=== PATIENT | male | born 2000 | race African-American/Black ===

== ENCOUNTER 2024-01-12 01:25 | Emergency (ER) | payer MEDICAID, SELFPAY ==
--- NOTE | ~2024-01-12 | XR_ITS ---
XR wrist LT min 3V DATE: 01/12/2024 01:55 INDICATION: Left wrist pain TECHNIQUE: 4 views COMPARISON: None FINDINGS: There is a minimally displaced mildly comminuted intra-articular fracture of the distal rad ius. No other fracture or dislocation is detected. IMPRESSION: Intra-articular distal radial fracture Reviewed, dictated and finalized at location A.
[2024-01-12 01:28] VITALS: BP 146/88; PULSE 86; RESP 20; TEMP 37.1; O2SAT 100
--- NOTE | 2024-01-12 02:12 | ED.GENADULT ---
HPI - General Adult General Chief complaint: Extremity Injury, Upper Stated complaint: Bilateral wrist injury Time Seen by Provider: 01/12/24 01:38 History of Present Illness HPI narrative: This is a 23-year-old male presenting wrist injury. He is playing basketball when he had a fall on an outstretched hand. He now has swelling and pain in his left wrist. No other injuries Related Data Allergies Allergy/AdvReac Type Severity Reaction Status Date / Time No Known Allergies Allergy Verified 01/12/24 01:32 Exam Narrative: APPEARANCE: No apparent distress. Head: atraumatic. EYES: EOMI, NOSE: Atraumatic NECK: Trachea midline RESPIRATORY: No increased rate of breathing CARDIOVASCULAR: RRR, ABDOMINAL: Non-distended MUSCULOSKELETAl: focal exam left wrist revealed swelling. virtual customer assistant strength intact, cap refill less than 2 seconds. No anatomic snuffbox tenderness. NEURO: Alert. Moving 4/4 extremities SKIN:: Warm, dry. Normal color PSYCHIATRIC: Normal affect Course Vital Signs Vital signs: Vital Signs Temperature 98.8 F 01/12/24 01:28 Pulse Rate 86 01/12/24 01:28 Respiratory Rate 20 01/12/24 01:28 Blood Pressure 146/88 H 01/12/24 01:28 Pulse Oximetry 100 01/12/24 01:28 Oxygen Delivery Room Air 01/12/24 01:28 Temperature 98.8 F 01/12/24 01:28 Pulse Rate 86 01/12/24 01:28 Respiratory Rate 20 01/12/24 01:28 Blood Pressure 146/88 H 01/12/24 01:28 Pulse Oximetry 100 01/12/24 01:28 Oxygen Delivery Room Air 01/12/24 01:28 Medical Decision Making [facility] Narrative Medical decision making narrative: -Course: 23-year-old male presenting left wrist pain. X-ray showed a distal radius fracture. patient placed in a splint. Neurovascularly intact before and after splint. given Orthopedic follow-up. -DDX includes but is not limited to: Wrist sprain, wrist fracture -Independent interpretation of studies: Radius fracture on Xray -Interventions: Motrin, Tylenol -Shared decision making / Disposition: Discharged -RX Motrin/Tylenol Vital Signs Vital Signs: Vital Signs Temperature 98.8 F 01/12/24 01:28 Pulse Rate 86 01/12/24 01:28 Respiratory Rate 20 01/12/24 01:28 Blood Pressure 146/88 H 01/12/24 01:28 Pulse Oximetry 100 01/12/24 01:28 Oxygen Delivery Room Air 01/12/24 01:28 Temperature 98.8 F 01/12/24 01:28 Pulse Rate 86 01/12/24 01:28 Respiratory Rate 20 01/12/24 01:28 Blood Pressure 146/88 H 01/12/24 01:28 Pulse Oximetry 100 01/12/24 01:28 Oxygen Delivery Room Air 01/12/24 01:28 Discharge Plan Discharge Clinical Impression: Fracture of wrist Patient Disposition: Home, Self-Care Condition: Stable Instructions: Antibiotic Form, Wrist Fracture in Adults (ED) Additional Instructions: Please use Motrin Tylenol pain. Please call the orthopedic office tomorrow morning to schedule an appointment. Return ED if you develop severe pain in your wrist or inability to move your hand. Prescriptions: New ibuprofen 200 mg capsule 600 mg PO TID PRN (Reason: pain) Qty: 60 0RF acetaminophen 500 mg tablet 1,000 mg PO TID PRN (Reason: leslie) 7 Days Qty: 42 0RF Follow-up/Referrals: PHYSICIAN,ROTARY KILN OPERATOR [Primary Care Provider] - Vineet Raphael MD [Physician] - 3 Days (Wrist fracture)
[2024-01-12] MEDS: ACETAMINOPHEN 500 MG TABLET 1000 MG PO (02:24)
[2024-01-12] MEDS: IBUPROFEN 400 MG TABLET 800 MG PO (02:24)
== END 2024-01-12 02:47 | disposition home or self-care (01) ==
PROVIDERS: Emergency Provider Emergency Medicine
DX: S52.572A Other intraarticular fracture of lower end of left radius, initial encounter for closed fracture (principal); W19.XXXA Unspecified fall, initial encounter; Y93.67 Activity, basketball
CPT/HCPCS: 29125; 73110; 99284; A9270

== ENCOUNTER 2025-06-26 14:48 | Emergency (ER) | payer OTHER, SELFPAY ==
[2025-06-26] VITALS (13 sets, daily range): BP systolic 137–142; BP diastolic 85–101; PULSE 54–79; RESP 12–25; TEMP 36.8; O2SAT 99–100
--- NOTE | ~2025-06-26 | CT_ITS ---
Elvis Jones EXAMINATION: CT abdomen pelvis w con COMPARISON: None HISTORY: abdominal pain TECHNIQUE: Axial images were obtained through the abdomen, pelvis post administration of IV contrast. Oral contrast was also administered. Coronal reconstruction images were obtained from the axial views. CT scan performed using dose optimization techniques including the following automated exposure control; adjustment of mA and/or kV; use of iterative reconstruction technique. Automatic exposure control was used to reduce radiation dose. Permanent radiation dose record is archived to PACS. FINDINGS: CT abdomen: LUNG BASES: The lung bases are clear. The visualized portions of the heart and pericardium are unremarkable. LIVER: Unremarkable, liver contours intact, no lesions. SPLEEN: Unremarkable. 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 Right kidney midpole 3 mm calculus, no hydronephrosis. Left Kidney: Unremarkable. No calculi. No hydronephrosis ADRENAL GLANDS: Unremarkable. PANCREAS: Unremarkable. GALLBLADDER/BILIARY: Unremarkable. No biliary dilatation. STOMACH AND ESOPHAGUS: Visualized stomach and esophagus within normal limits. BOWEL/MESENTERY: No colitis or diverticulitis. Appendix normal. Mesentery normal. No dilated small bowel loops. ADENOPATHY/RETROPERITONEUM: No lymphadenopathy. AORTA/VASCULATURE: Normal caliber aorta. FREE FLUID OR FREE AIR: Minimal free fluid.. CT pelvis: SOLID ORGANS/REPRODUCTIVE: Unremarkable. BLADDER: Within normal limits. OSSEOUS STRUCTURES: No acute osseous abnormality.No suspicious lesions. OVERLYING SOFT TISSUES: Unremarkable. IMPRESSION: 1. No etiology identified to explain the patient's symptoms. Follow-up suggested if symptoms persist. Reviewed, dictated and finalized at location P. IMPRESSION: 1. No etiology identified to explain the patient's symptoms. Follow-up suggeste d if symptoms persist.
--- NOTE | ~2025-06-26 | XR_ITS ---
EXAMINATION: XR chest 2V, 06/26/2025 17:50 CDT HISTORY: dizzy; chest pain COMPARISON: No comparisons available. Technique: 2 views obtained. Findings: The lungs are clear, no effusion. No pneumothorax. Heart is normal size. Mediastinal and hilar contours are within normal limits. Bony thorax no acute abnormality. Impression: No acute cardiopulmonary abnormality. Reviewed, dictated and finalized at location P. Impression: No acute cardiopulmonary abnormality.
--- NOTE | 2025-06-26 15:00 | ECG_ITS ---
Test Date: 2025-06-26 15:04:29 Measurements Intervals [place] Rate: 62 P: 75 DE: 136 QRS: 73 QRSD: 83 T: 55 QT: 354 QTc: 361 Interpretive Statements SINUS RHYTHM WITH SINUS ARRHYTHMIA VOLTAGE CRITERIA FOR LVH BORDERLINE ECG No previous ECG available for comparison Electronically Signed On 06-26-2025 15:57:41 CDT by Wesley Barnett D.O.
--- OUTSIDE RECORDS SUMMARY | 2025-06-26 17:19 | XMS_ITS | Clinical Summary ---
Author Organization [facility] Address [address] [place] [address] Care Team Providers Care Cutting And Splicing Supervisor Name Role Phone No, Physician Primary Care Provider Allergies No known active allergies Medications al & mag hydroxide with simethicone-diphenh ydramine-lidocaine (MAGIC MOUTHWASH) suspension 1-1-1 Swish and swallow 10 mL every 4 (four) hours as needed (sore throat/pain) 250 mL 3 Active ondansetron ODT (ZOFRAN-ODT) 4 mg disintegrating tablet Take 1 tablet (4 mg total) by mouth every 8 (eight) hours as needed for nausea or vomiting 10 tablet 4 Active Social History Tobacco Use Types Packs/Day Years Used Date Smoking Tobacco: Never Assessed Personal Safety Answer Date Recorded Have you ever been in or are you currently in a harmful physical or emotional relationship or is someone making you feel afraid or unsafe? 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 Gender Identity Not on file Sexual Orientation Not on file Last Filed Vital Signs Vital Sign Reading Time Taken Comments Blood Pressure 142/93 05/02/2024 7:02 PM CDT Pulse 57 05/02/2024 7:02 PM CDT Temperature 36.8 C (98.3 F) 05/02/2024 7:02 PM CDT Respiratory Rate 18 05/02/2024 7:02 PM CDT Oxygen Saturation 99% 05/02/2024 7:02 PM CDT Inhaled Oxygen Concentration - - Weight 63.1 kg (139 lb 1.8 oz) 05/02/2024 4:42 P M CDT Height 172.7 cm (5' 8) 02/05/2018 11:53 AM CDT Body Mass Index 21.15 02/05/2018 11:53 AM CDT Plan of Treatment Health Maintenance Due Date Last Done Comments Depression Screening 1998 Hepatitis C Screening 1998 DTaP/Tdap/Td Vaccine (1 - Tdap) 2009 Varicella Vaccines (1 of 2 - 13+ 2-dose series) 2011 Regular Well Visit/Exam 18-64 2016 HPV Vaccines (2 - Male 3-dos e series) 08/30/2016 08/02/2016 Influenza Vaccine (#1) 2025 Hepatitis B Screening Completed 08/02/2016 Pneumococcal vaccine <65 Aged Out No longer eligible based on patient's age to complete this topic Insurance [employer] [facility] Care Teams Cutting And Splicing Supervisor Relationship Specialty Start Date End Date No, Physician PCP - General 01/26/23
--- OUTSIDE RECORDS SUMMARY | 2025-06-26 17:19 | XMS_ITS | Clinical Summary ---
Author Organization [facility] Address [address] [place] [id number] Care Team Providers Care Community Service Manager Name Role Phone Yue Brooks Primary Care Provider Social History Tobacco Use Types Packs/Day Years Used Date Smoking Tobacco: Never Assessed Sex and Gender Information Value Date Recorded Sex Assigned at Not on file Legal Sex Male 7:36 PM CDT Gender Identity Not on file Sexual Orientation Not on file Plan of Treatment Health Maintenance Due Date Last Done Comments Annual Physical 2001 Hepatitis C 2016 HPV Vaccines (2 - Male 3-dos e series) 08/30/2016 08/02/2016 Hepatitis B Vaccines (2 of 3 - 3-dose series) 08/30/2016 08/02/2016 DTaP, Tdap and Td Vaccines ( 1 - Tdap) 2017 COVID-19 Vaccine (2 - 2024-2 6 season) 2025 08/01/2022 Influenza Adult (#1) 2025 Meningococcal Vaccine Completed 08/02/2016 Meningococcal B Vaccine Aged Out No l onger eligible based on patient's age to complete this topic Pneumococcal Vaccine: Pediat rics (0 to 5 Years) and At-Risk Patients (6 to 49 Years) Aged Out No longer eligi ble based on patient's age to complete this topic RSV Immunizations Under 20 Months Aged Out No longer eligible based on patient's age to complete this topic Care Teams Community Service Manager Relationship Specialty Start Date End Date Yue Brooks APNP [address] [place] [id number] PCP - General NURSE PRACTITIONER 01/23/23
--- NOTE | 2025-06-26 17:41 | ED_ITS ---
HPI - Abdominal Pain General Chief Complaint: Dizziness Stated Complaint: lightheaded Time Seen by Provider: 06/26/25 17:00 History of Present Illness HPI narrative: Patient is a 24-year-old male who presents to the ER with a history of abdominal pain, nausea, vomiting, dizziness, and fever. He reports his symptoms started approximately 2 days ago. Patient denies any urinary symptoms, constipation, diarrhea, chest pain, coughing, or shortness of breath. He denies any medical history relevant to this ER visit. Patient denies any recent alcohol use but endorses intermittent marijuana use. Related Data Allergies Allergy/AdvReac Type Severity Reaction Status Date / Time No Known Allergies Allergy Verified 06/26/25 14:59 Review of Systems 2 Review of Systems: All systems reviewed & are unremarkable except as noted in HPI and below Exam 2 Narrative: GENERAL: Well appearing, well-nourished, non-toxic, in no acute distress. HEAD: Normocephalic, atraumatic. NECK: Supple. No adenopathy, no masses. RESPIRATORY: Airway patent, respirations nonlabored. Clear to auscultation bilaterally, no rales, rhonchi, wheezing. CARDIOVASCULAR: Regular rate and rhythm without murmurs, rubs, or gallops. Peripheral pulses 2+ and equal bilaterally. ABDOMINAL: Soft, nontender, nondistended, no hepatosplenomegaly. Normoactive BS. MUSCULOSKELETAL: Moves all extremities. Strength/ROM intact without gross deformities. SKIN: Warm, dry, normal color. No rashes. NEURO: A&O X3. Speech clear. Cranial nerves II-XII intact. No ataxic movements. PSYCHIATRIC: Appropriate mood and affect. Normal interaction. Course Vital Signs Vital signs: Vital Signs Temperature 36.8 C 06/26/25 14:57 Pulse Rate 79 06/26/25 14:57 Respiratory Rate 15 06/26/25 14:57 Blood Pressure 138/85 06/26/25 14:57 Pulse Oximetry 100 06/26/25 14:57 Oxygen Delivery Room Air 06/26/25 14:57 Temperature 36.8 C 06/26/25 14:57 Pulse Rate 54 L 06/26/25 18:01 Respiratory Rate 15 06/26/25 18:01 Blood Pressure 137/93 H 06/26/25 18:01 Pulse Oximetry 99 06/26/25 18:01 Oxygen Delivery Room Air 06/26/25 14:57 MDM - Abdominal Pain MDM Narrative Medical decision making narrative: Patient is a 24-year-old male who presents to the ER with a history of abdominal pain, nausea, vomiting, dizziness, and fever. He reports his symptoms started approximately 2 days ago. Patient denies any urinary symptoms, constipation, diarrhea, chest pain, coughing, or shortness of breath. He denies any medical history relevant to this ER visit. Patient denies any recent alcohol use but endorses intermittent marijuana use. Labs Ordered: CBC, CMP, lipase, COVID/flu/RSV Imaging Ordered: CT abdomen pelvis, chest x-ray Medications Ordered: Zofran 4 mg IV, 1 L normal saline IV bolus Results: Pt's CT scan indicates No etiology identified to explain the patient's symptoms. Follow-up suggested if symptoms persist. Pt's chest x-ray indicates no acute cardiopulmonary abnormalities. Diagnosis: Gastroenteritis, mild dehydration Patient Education/Shared MDM: Results of lab work shared with patient. He endorses improvement of symptoms following nausea medication administration. Patient strongly advised to maintain hydration status upon discharge and follow- up with his PCP as soon as possible if his symptoms persist. He will be discharged home with a prescription for Bentyl and Zofran. Strict return precautions provided. Patient verbalized understanding and is in agreement with plan. Vital signs stable at time of discharge. All questions answered. Differential Diagnosis Differential diagnosis: Likely acute appendicitis, calculus of kidney, constipation and gastroenteritis Lab Data Attestation: I reviewed the patient's lab results. 06/26/25 17:32 06/26/25 17:32 Labs: Lab Results 06/26/25 06/26/25 06/26/25 Range/Units 17:32 18:56 19:05 WBC 4.7 (4.5-10.0) K/mm3 RBC 4.99 (4.6-6.20) M/mm3 Hgb 14.4 (14.0-18.0) g/dL Hct 42.6 (42.0-52.0) % MCV 85.4 (80-100) fl MCH 28.9 (26-34) pg MCHC 33.8 (32-36) g/dl RDW 12.6 (11.5-14.5) % Plt Count 216 (150-375) k/mm3 MPV 10.8 H (7.4-10.4) fl Immature Gran % (Auto) 0.2 (0-0.5) % Neut % (Auto) 55.3 (45.5-73.1) % Lymph % (Auto) 32.9 (18.3-44.2) % [place] % (Auto) 8.4 (2.6-8.5) % Eos % (Auto) 2.6 (0-4.4) % Baso % (Auto) 0.6 (0.2-1.2) % Lymph # (Auto) 1.53 (0.9-3.2) K/mm3 [place] # (Auto) 0.4 (0.1-0.6) K/mm3 Eos # (Auto) 0.1 (0-0.3) K/mm3 Baso # (Auto) 0.0 (0.0-0.1) K/mm3 Abs Immat Gran (auto) 0.01 (0.00-0.031) K/mm3 Absolute Neuts (auto) 2.6 (1.3-6.7) K/mm3 Absolute Nucleated RBC 0.000 (0.0-0.012) K/mm3 Nucleated RBC % 0.0 (0.0-0.2) % Sodium 138 (137-145) mmol/L Potassium 3.7 (3.4-5.0) mmol/L Chloride 103 (98-107) mmol/L Carbon Dioxide 24 (22-30) mmol/L Anion Gap 11 (4-12) mmol/L BUN 18 (9-20) mg/dL Creatinine 0.78 (0.7-1.3) mg/dL Estim Creat Clear Calc 114 ml/min Estimated GFR > 60 (59 - ) Glucose 86 (65-110) mg/dL Calcium 9.2 (8.4-10.2) mg/dL Total Bilirubin 0.5 (0.2-1.3) mg/dL AST 25 (17-59) U/L ALT 20 (6-50) U/L Alkaline Phosphatase 72 (38-126) U/L Total Protein 8.0 (6.3-8.2) g/dL Albumin 4.6 (3.5-5.1) g/dL Lipase 95 (23-300) U/L Urine Color Yellow (Yellow) Urine Appearance Clear (Clear) Urine pH 6.5 (5.0-9.0) Ur Specific [place] > 1.045 H (1.001-1.035) Urine Protein Negative (Negative) mg/dL Urine Glucose (UA) Negative (Negative) mg/dL Urine Ketones 1+ H (Negative) mg/dL Ur Blood (Man) Negative (Negative) Urine Nitrate Negative (Negative) Urine Bilirubin Negative (Negative) Urine Urobilinogen 0.2 (<2.0) mg/dL Leukocyte Esterase Rfl Negative (Negative) SUMMER/UL Influenza A (RT-PCR) Negative (Negative) Influenza B (RT-PCR) Negative (Negative) RSV (RT-PCR) Negative (Negative) SARS-CoV-2 RNA (RT-PCR) Negative (Negative) Imaging Data Attestation: I personally reviewed and interpreted this imaging study as follows: Radiologist's impression: ITS Impressions Chest X-Ray 06/26/25 18:02 Impression: No acute cardiopulmonary abnormality. Abdomen/Pelvis CT 06/26/25 19:26 IMPRESSION: 1. No etiology identified to explain the patient's symptoms. Follow-up suggested if symptoms persist. Discharge Plan Discharge Clinical Impression: Gastroenteritis, Dehydration, mild Patient Disposition: Home Condition: Stable Instructions: Antibiotic Form, Gastroenteritis (ED), Dizziness (ED) Additional Instructions: Please return to the ER with any worsening symptoms. Follow-up with primary care provider as needed if your symptoms persist. Please take Zofran as needed for nausea. You may take Bentyl as needed for abdominal pain. Please remember to drink lots of water. Patient Language: Cuban Prescriptions: New dicyclomine 20 mg tablet 20 mg PO TID Qty: 30 0RF ondansetron 4 mg tablet,disintegrating 4 mg PO Q8H Qty: 30 0RF No Action ibuprofen 200 mg capsule 600 mg PO TID PRN (Reason: pain) Qty: 60 0RF acetaminophen 500 mg tablet 1,000 mg PO TID PRN (Reason: leslie) 7 Days Qty: 42 0RF Follow-up/Referrals: PHYSICIAN NOT ON STAFF,NONSTAFF [Primary Care Provider] Stand Alone Forms: Work/School Release IP Time of Disposition: 20:11
[2025-06-26 17:43] LABS: Hematocrit 42.6 % (42.0-52.0); Hemoglobin 14.4 g/dL (14.0-18.0); Immature Granulocyte Percent A 0.2 % (0-0.5); Lymphocytes Absolute Auto 1.53 K/mm3 (0.9-3.2); Mean Corpuscular HGB Conc 33.8 g/dl (32-36); Mean Corpuscular Hemoglobin 28.9 pg (26-34); Mean Corpuscular Volume 85.4 fl (80-100); Nucleated Red Blood Cells Absolute Auto 0.000 K/mm3 (0.0-0.012); Nucleated Red Blood Cells Perc 0.0 % (0.0-0.2); Platelet Count Result 216 k/mm3 (150-375); Red Blood Count 4.99 M/mm3 (4.6-6.20); White Blood Count 4.7 K/mm3 (4.5-10.0)
[2025-06-26 17:51] LABS: Alanine Aminotransferase 20 U/L (6-50); Albumin Level 4.6 g/dL (3.5-5.1); Alkaline Phosphatase 72 U/L (38-126); Anion Gap 11 mmol/L (4-12); Aspartate Amino Transferase 25 U/L (17-59); Bilirubin,Total 0.5 mg/dL (0.2-1.3); Blood Urea Nitrogen 18 mg/dL (9-20); Calcium 9.2 mg/dL (8.4-10.2); Carbon Dioxide 24 mmol/L (22-30); Chloride 103 mmol/L (98-107); Estimated CRCL calculation 114 ml/min; Estimated Glomerular Filt Rate > 60; Glucose 86 mg/dL (65-110); Lipase 95 U/L (23-300); Potassium 3.7 mmol/L (3.4-5.0); Sodium 138 mmol/L (137-145); Total Protein 8.0 g/dL (6.3-8.2)
[2025-06-26] MEDS: ONDANSETRON INJ 4 MG/2 ML VIAL IV PUSH (18:07)
[2025-06-26] MEDS: SODIUM CHLORIDE 0.9% IV 1,000 ML 999 ML IV CONT (18:07)
[2025-06-26 19:38] LABS: Influenza A QL RT-PCR Negative (Negative); Influenza B QL RT-PCR Negative (Negative); RSV RNA, RT-PCR Negative (Negative); SARS-CoV-2 RNA PCR Negative (Negative)
[2025-06-26 19:56] LABS: Add Urine Microscopic? NO; Appearance Urine Clear (Clear); Glucose Urine UA Negative (Negative); Leukocyte Esterase Ur Negative LEU/UL (Negative); Nitrate Urine Negative (Negative); Specific Grav Ur > 1.045 (1.001-1.035)
== END 2025-06-26 20:18 | disposition home or self-care (01) ==
PROVIDERS: Emergency Provider Registered Nurse
DX: K52.9 Noninfective gastroenteritis and colitis, unspecified (principal); E86.0 Dehydration; Z20.822 Contact with and (suspected) exposure to COVID-19
CPT/HCPCS: 36415; 71046; 74177; 80053; 81003; 83690; 85025; 87637; 93005; 96361; 96374; 99284; J2405; J7030; Q9967